=== PATIENT | male | born 1995 | race Caucasian/White ===

== ENCOUNTER 2019-07-03 11:13 | Emergency (ER) | payer SELFPAY ==
[~2019-07-03] VITALS: Ht 185.4 cm; Wt 79.4 kg
[2019-07-03] MEDS ORDERED: Norco 5-325 Ta1 EACH PO (14:02)
[2019-07-03] MEDS ORDERED: Crutch1 EACH MISC (14:04)
== END 2019-07-03 14:49 | disposition home or self-care (01) ==
LOC: ER 11:13
DX: S93.04XA Dislocation of right ankle joint, initial encounter (principal); S22.089A Unspecified fracture of T11-T12 vertebra, initial encounter for closed fracture; W22.8XXA Striking against or struck by other objects, initial encounter; Y93.01 Activity, walking, marching and hiking
CPT/HCPCS: 28435; 72100; 73600; 73620; 96374-59; 96375-59; 99152; 99283-25; J2405; J2704; J3010; J7030